=== PATIENT | male | born 1965 | race Caucasian/White ===

== ENCOUNTER 2017-10-01 09:56 | Outpatient (CLI) | payer OTHER ==
[~2017-10-01 09:56] MED LIST: NABUMETONE500 MG PO; PERCOCET 5/3251 TAB PO
== END 2017-10-01 10:28 | disposition home or self-care (01) ==
LOC: NUCLEAR 09:56
DX: I20.1 Angina pectoris with documented spasm (principal)

== ENCOUNTER 2025-04-16 15:06 | Inpatient (IN) | payer OTHER ==
[~2025-04-16] VITALS: Ht 167.6 cm; Wt 78.0 kg
--- NOTE | 2025-04-16 17:20 | NUR ---
SE RECIBE PTE ALERTA, ORIENTADA X3 Y AMBULANDO. PTE REFIERE DOLOR ABOMINAL, NAUSEAS Y DOLOR AL ORINAR DESDE RAMESH. REFIERE TRAUMA HACE 1 MES EN CUADRANTE DERECHO INFERIOR DEL ABDOMEN CON UN TALADRO MIESTRAS TRABAJABA. PTE PRESENTA ICTERIA. SE MIDEN S/V Y SE UBICA.
[2025-04-16] MEDS ORDERED: KETOROLAC TROMETHAMINE 30 MG VIAL ONE (17:35)
[2025-04-16] MEDS ORDERED: FAMOTIDINE/PF 20 MG/2 ML VIAL ONE (17:36)
[2025-04-16] MEDS ORDERED: FAMOtidine 10 MG/ML (4ML VIAL) IV ONE (17:45)
[2025-04-16] MEDS ORDERED: 0.9 % SODIUM CHLORIDE 1,000 ML IV ONE (17:45)
[2025-04-16] MEDS ORDERED: KETOROLAC TROMETHAMINE 30 MG VIAL IV ONE (17:45)
[2025-04-16 18:35] LABS: BASO % 0.3 % (0.1-1.2); EOS # 0.18 (0.04-0.54); EOS % 1.1 % (0.7-7.0); LYMPH # 1.09 (1.18-3.74); LYMPH % 6.8 % (19.3-53.1); MEAN PLATELET VOLUME 10.20 fl (9.4-12.4); MONO # 1.04 (0.24-0.82); MONO % 6.5 % (4.7-12.5); NEUT # 13.37 (1.56-6.13); NEUT % 83.7 % (34.0-71.1); RED CELL DISTRIBUTION WIDTH 13.1 % (11.6-14.4)
--- NOTE | 2025-04-16 18:52 | NUR ---
SE ORIENTA PTE SOBRE TX MEDICO Y EL MISMO REFIERE ENTENDER Y ACEPTAR. SE CANALIZA Y SE COLECTAN MUESTRAS DE LAB, SE ADMINISTRAN MEDS SEGUNO ORDEN MEDICA, PTE NO PRESENTA REACCION. SE HACE ENTREGA DE ENVASE PARA U/A U/C, SE NOTIFICA ESTUDIO PENDIETE.
[2025-04-16 19:01] LABS: ALT/SGPT 79.0 U/L (12-78); AST/SGOT 56.0 U/L (15-37); BILIRUBIN TOTAL 4.49 mg/dL (0.3-1.2); BILIRUBIN,CONJUGATED 3.32 mg/dL (0.0-0.2); BUN CREA RATIO 25.0 (7.0-25.0); CREATININE SERUM 1.29 mg/dL (0.70-1.30); GFR 57.01; GLOBULINA 5.2 G/DL (2.4-3.5); OSMOLALITY SERUM 276.0 MOSM/KG (275-295)
[2025-04-16] MEDS ORDERED: PIPERACILLIN/TAZOBACTAM SODIUM 3.375 GM VIAL IV ONE ×3 (19:15→23:32)
[2025-04-16 19:18] LABS: GLUCOSE FASTING 206.0 mg/dL (65-100)
[2025-04-16 20:24] LABS: URINE APPEARANCE Cloudy; URINE BILIRRUBIN Moderate (NEGATIVE); URINE BLOOD Negative; URINE COLOR Dark Yellow; URINE KETONE Trace (NEGATIVE); URINE LEUKOCYTE Trace; URINE NITRATE Positive; URINE PROTEIN 30 (NEGATIVE); URINE UROBILINOGEN 1.0 E.U./dl
[2025-04-16 20:25] LABS: URINE BACTERIA 41.9 uL (0.0-1933); URINE CAST 5.13 uL (0.0-1.40); URINE EPITHELIAL CELLS 32.2 uL (0.0-38.8); URINE RBC 16.7 uL (0.0-20.8); URINE WBC 1.9 uL (0.0-23.2)
[2025-04-16 21:15] LABS: URINE GLUCOSE 250 MG/DL (NEGATIVE)
[2025-04-16] MEDS ORDERED: INSULIN LISPRO 1,000 UNIT/10 ML UNITS SUBCUTANEO PRN (22:15)
[2025-04-16] MEDS ORDERED: DEXTROSE 50 % IN WATER 0.5 G/ML DISP.SYRIN IV PRN (22:15)
[2025-04-16] MEDS ORDERED: MORPHINE SULFATE 4 MG/ML CARTRIDGE IV PRN (22:15)
[2025-04-17] MEDS ORDERED: PIPERACILLIN/TAZOBACTAM SODIUM 3.375 GM VIAL IV SCH
[2025-04-17 00:42] LABS: INR 1.03
[2025-04-17] MEDS ORDERED: PIPERACILLIN/TAZOBACTAM SODIUM 3.375 GM VIAL IV ONE ×2 (06:42→15:32)
--- NOTE | 2025-04-17 07:06 | NUR ---
SE RECIBE PTE ALERTA Y ORIENTADO X3 EN CAMA BAJA CON BARANDAS ELEVADAS. CANALIZADO EN BRAZO TRINITY CON ANGIO #20 PATENTE NAVNEET DE EDEMA Y ENROJECIMIENTO. RECIBIENDO .9NSS BAJANDO A 60MLS/HR. PENDIENTE MRC PANCREAS.
[2025-04-17] MEDS ORDERED: FAMOTIDINE/PF 20 MG/2 ML VIAL ONE (08:57)
[2025-04-17] MEDS ORDERED: FAMOtidine 10 MG/ML (4ML VIAL) IV SCH (09:00)
[2025-04-17] MEDS ORDERED: ASPIRIN 81 MG TABLET.EC PO SCH (10:42)
[2025-04-17] MEDS ORDERED: ONDANSETRON HCL 4 MG in 0.9 % SODIUM CHLORIDE 50 ML IV PRN (10:45)
[2025-04-17] MEDS ORDERED: MORPHINE SULFATE 4 MG/ML CARTRIDGE IV PRN (10:45)
[2025-04-17] MEDS ORDERED: 0.9 % SODIUM CHLORIDE 1,000 ML IV SCH (10:45)
[2025-04-17] MEDS ORDERED: LOSARTAN POTASSIUM 25 MG TABLET PO SCH (11:02)
[2025-04-17] MEDS ORDERED: ATORVASTATIN CALCIUM 40 MG TABLET PO SCH (11:05)
[2025-04-17 11:54] VITALS: BP 111/70
[2025-04-17] MEDS ORDERED: PIPERACILLIN/TAZOBACTAM SODIUM 3.375 GM in 0.9 % SODIUM CHLORIDE 100 ML IV SCH (12:00)
[2025-04-17 12:33] LABS: BASO % 0.4 % (0.1-1.2); EOS # 0.18 (0.04-0.54); EOS % 1.7 % (0.7-7.0); LYMPH # 0.99 (1.18-3.74); LYMPH % 9.3 % (19.3-53.1); MEAN PLATELET VOLUME 9.90 fl (9.4-12.4); MONO # 0.69 (0.24-0.82); MONO % 6.5 % (4.7-12.5); NEUT # 8.47 (1.56-6.13); NEUT % 79.7 % (34.0-71.1); RED CELL DISTRIBUTION WIDTH 13.3 % (11.6-14.4)
[2025-04-17 13:11] LABS: ALT/SGPT 77.0 U/L (12-78); AST/SGOT 58.0 U/L (15-37); BILIRUBIN TOTAL 2.98 mg/dL (0.3-1.2); BILIRUBIN,CONJUGATED 2.04 mg/dL (0.0-0.2); BUN CREA RATIO 22.0 (7.0-25.0); CREATININE SERUM 0.87 mg/dL (0.70-1.30); GFR 89.81; GLOBULINA 4.2 G/DL (2.4-3.5); GLUCOSE FASTING 113.0 mg/dL (65-100); OSMOLALITY SERUM 275.0 MOSM/KG (275-295)
[2025-04-17 15:00] VITALS: BP 119/75; O2SAT 98
[2025-04-17 15:39] LABS: ABG PH 7.480 (7.35-7.45); ABG PO2 85.4 mmHg (80-100); BICARBONATE 22.7 mmol/l (23-25); o2 21 %
[2025-04-17 16:33] LABS: INR 1.05
[2025-04-17 18:35] VITALS: BP 112/79; O2SAT 99
[2025-04-17 20:38] VITALS: BP 113/81; O2SAT 99
[2025-04-17 23:33] VITALS: BP 120/80; O2SAT 100
[2025-04-18 04:41] VITALS: BP 104/63; O2SAT 96
[2025-04-18 07:20] VITALS: BP 117/78; O2SAT 98
[2025-04-18] MEDS ORDERED: FAMOTIDINE/PF 20 MG/2 ML VIAL IV SCH (09:00)
[2025-04-18 11:56] VITALS: BP 121/71; O2SAT 100
[2025-04-18 15:38] VITALS: BP 118/85; O2SAT 100
[2025-04-18 20:01] VITALS: BP 132/93; O2SAT 100
[2025-04-18] MEDS ORDERED: Dextrose ORAL GEL 37.5GM GEL PO ONE (20:16)
[2025-04-18 23:21] VITALS: BP 139/81; O2SAT 99
[2025-04-19 04:00] VITALS: BP 129/78; O2SAT 96
[2025-04-19 07:04] VITALS: BP 126/71; O2SAT 96
[2025-04-19 07:14] LABS: ALT/SGPT 92.0 U/L (12-78); AST/SGOT 74.0 U/L (15-37); BILIRUBIN TOTAL 1.92 mg/dL (0.3-1.2); BUN CREA RATIO 13.0 (7.0-25.0); CREATININE SERUM 0.79 mg/dL (0.70-1.30); GFR 100.39; GLOBULINA 4.3 G/DL (2.4-3.5); GLUCOSE FASTING 107.0 mg/dL (65-100); OSMOLALITY SERUM 270.0 MOSM/KG (275-295)
[2025-04-19 12:00] VITALS: BP 117/78; O2SAT 100
[2025-04-19 15:40] VITALS: BP 111/87; O2SAT 97
[2025-04-19] MEDS ORDERED: AMINO ACIDS/PROTEIN HYDROLYS 30 ML BLIST.PACK PO SCH (17:00)
[2025-04-20 01:58] VITALS: BP 129/68; O2SAT 97
[2025-04-20 09:08] VITALS: BP 100/56; O2SAT 97
[2025-04-20 17:35] VITALS: BP 120/78
[2025-04-21 02:03] VITALS: BP 107/70; O2SAT 99
[2025-04-21 06:39] LABS: ALT/SGPT 73.0 U/L (12-78); AST/SGOT 52.0 U/L (15-37); BILIRUBIN TOTAL 1.2 mg/dL (0.3-1.2); BUN CREA RATIO 11.0 (7.0-25.0); CREATININE SERUM 0.79 mg/dL (0.70-1.30); GFR 100.39; GLOBULINA 4.4 G/DL (2.4-3.5); GLUCOSE FASTING 108.0 mg/dL (65-100); OSMOLALITY SERUM 273.0 MOSM/KG (275-295)
[2025-04-21 09:27] VITALS: BP 113/70; O2SAT 97
== END 2025-04-21 14:56 | disposition home or self-care (01) | DRG 444 ==
LOC: ER 15:07 → SEC-K 04-17 10:32 → ICU-2 04-17 17:08 → ICU 04-17 18:23 → MEDJ 04-19 19:25
PROVIDERS: General Practice; ADMIT Internal Medicine; ATTEND Internal Medicine
PROC: BW21YZZ Computerized Tomography (CT Scan) of Abdomen and Pelvis using Other Contrast (ICD-10-PCS; principal; 2025-04-16)
PROC: BW40ZZZ Ultrasonography of Abdomen (ICD-10-PCS; 2025-04-16)
PROC: BF37ZZZ Magnetic Resonance Imaging (MRI) of Pancreas (ICD-10-PCS; 2025-04-17)
DX: K81.0 Acute cholecystitis (principal); K75.0 Abscess of liver; D72.829 Elevated white blood cell count, unspecified